=== PATIENT | female | born 1985 ===

== ENCOUNTER 2017-08-24 03:18 | Inpatient (IN) | payer OTHER ==
[2017-08-24 03:57] VITALS: BMI 31.3
[2017-08-24 04:40] LABS: RBC URINE 406 /hpf (0-3); URINE BILIRUBIN NEGATIVE (NEGATIVE); URINE BLOOD 3+ (NEGATIVE); URINE COLOR Amber (YELLOW); URINE GLUCOSE (UA) NORMAL (Normal); URINE KETONE NEGATIVE (NEGATIVE); URINE LEUKOCYTE ESTERASE 2+ Leu/uL (Negative); URINE PROTEIN 2+ mg/dL (NEGATIVE); URINE UROBILINOGEN NORMAL mg/dL (0.2-1.0); WBC URINE 112 /hpf (0-5)
--- NOTE | 2017-08-24 04:55 | OBHP ---
Datetime: 08/24/2017 04:51 IP Adm Impression: Term, intrauterine ; Active labor IP Admit Plan: Admit to unit; Initiate labor protocol Admit Comment, IP Provider: at 38+weks came with c/o ctxs and vb started at 2.30 am, irrg, no l of,+fm.no sex obhx primi pmh de med pnv all nkda psh de soch de ve -/-2 a/p at 38+weeks in eaely labor admit to l_d npo/ivf labs pain joseph cont dawson leah efm anticipate Pelvic Type - PN: Adequate Extremities - PN: Normal Abdomen - PN: Normal Back - PN: Normal Breast - PN: Normal Lungs - PN: Normal Heart - PN: Normal Thyroid - PN: Normal Neurologic - PN: Normal HEENT - PN: Normal General - PN: Normal FHR - Baseline A Provider: 130 Contraction Comments Provider: q1-4 Comments, ACOG Physical Exam: gravid,non tnder min spotting IP Hx Assessment: The History has been Reviewed and is Current EGA AdmitDate IP: 38.2 Vital Signs Provider: Reviewed; Within Normal Limits IP Chief Complaint: Uterine contractions; Vaginal bleeding NICHD Variability Prov Fetus A: Moderate 6-25bpm NICHD Accel Fetus A IP Provider: 15X15 FHR Category Provider Fetus A: Category I Dilatation, Provider: 3 Effacement, Provider: 70 Station, Provider: -2 Genitourinary Exam: Normal DTRs - PN: Normal
--- NOTE | 2017-08-24 04:58 | OBADHP ---
Datetime: 08/24/2017 04:51 Admit Comment, IP Provider: at 38+weks came with c/o ctxs and vb started at 2.30 am, irrg, no l of,+fm.no sex obhx primi pmh de med pnv all nkda psh de soch de ve 2-/-2 a/p at 38+weeks in eaely labor admit to l_d npo/ivf labs pain joseph cont dawson leah efm anticipate Pelvic Type - PN: Adequate Extremities - PN: Normal Abdomen - PN: Normal Back - PN: Normal Breast - PN: Normal Lungs - PN: Normal Heart - PN: Normal Thyroid - PN: Normal Neurologic - PN: Normal HEENT - PN: Normal General - PN: Normal FHR - Baseline A Provider: 130 Contraction Comments Provider: q1-4 Comments, ACOG Physical Exam: gravid,non tnder min spotting IP Hx Assessment: The History has been Reviewed and is Current Vital Signs Provider: Reviewed; Within Normal Limits IP Chief Complaint: Uterine contractions; Vaginal bleeding NICHD Variability Prov Fetus A: Moderate 6-25bpm NICHD Accel Fetus A IP Provider: 15X15 FHR Category Provider Fetus A: Category I Dilatation, Provider: 3 Effacement, Provider: 70 Station, Provider: -2 Genitourinary Exam: Normal DTRs - PN: Normal EGA AdmitDate IP: 38.2 IP Adm Impression: Term, intrauterine ; Active labor IP Admit Plan: Admit to unit; Initiate labor protocol
[2017-08-24] MEDS ORDERED: Lactated Ringer's 1,000 ML IV SCH (05:00)
[2017-08-24 05:56] LABS: BASO % 0.4 % (0.0-2.0); EOS % 0.3 % (0.0-4.0); HEMATOCRIT 30.2 % (34.0-47.0); LYMPH # 2.2 K/uL (1.0-4.3); LYMPH % 19.6 % (20.0-40.0); MEAN CELL VOLUME 76.9 fL (81.0-99.0); MEAN CORPUSCULAR HGB CONC 32.6 g/dL (33.0-37.0); MEAN PLATELET VOLUME 9.8 fL (7.2-11.7); MONO # 0.7 K/uL (0.0-0.8); MONO % 5.9 % (0.0-10.0); RED CELL DISTRIBUTION WIDTH 15.7 % (11.5-14.5); WHITE BLOOD COUNT 11.3 K/uL (4.8-10.8)
[2017-08-24 06:04] LABS: INR 0.9
[2017-08-24 06:26] LABS: CHLORIDE 104 mmol/L (98-107)
[2017-08-24 06:27] LABS: POTASSIUM 3.7 mmol/L (3.6-5.2); SODIUM 132 mmol/L (132-148)
[2017-08-24 06:29] LABS: ALB/GLOB RATIO 0.9 (1.0-2.1); ALKALINE PHOSPHATASE 305 U/L (38-126); ALT/SGPT 23 U/L (9-52); AST/SGOT 17 U/L (14-36); BILIRUBIN,TOTAL 0.4 mg/dL (0.2-1.3); BLOOD UREA NITROGEN 7 mg/dL (7-17); CARBON DIOXIDE 18 mmol/L (22-30); GFR AFRICAN-AMERICAN > 60
[2017-08-24 06:30] LABS: CALCIUM 8.3 mg/dl (8.6-10.4); GLUCOSE,RANDOM 71 mg/dL (65-105)
--- NOTE | 2017-08-24 07:50 | OBPN ---
Datetime: 08/24/2017 07:48 IP Progress Impression: Normal progression of labor IP Progress Plan: Continue present management Contraction Comments Provider: q 2-3 min FHR - Baseline A Provider: 135 Gestation - Est Wks by US: 38.2 IP Progress Note Comment: pt seen and examined c/o of vaginal bleeding bright red adn ctx every 2-3 min, increasing intesnty adn severiyt. pt dneis lof, +FM VSS EM: cat I TOCO: q2-3 min VE: 470/-2 VTX ntact plan @ 38.2 wks GA in active labor -cont curren tmangment Vital Signs Provider: Reviewed; Within Normal Limits NICHD Variability Prov Fetus A: Moderate 6-25bpm Dilatation, Provider: 4 Effacement, Provider: 70 Station, Provider: -2 NICHD Decel Fetus A IP Provider: None Datetime: 08/24/2017 04:51 NICHD Accel Fetus A IP Provider: 15X15 FHR Category Provider Fetus A: Category I
[2017-08-24] MEDS ORDERED: Oxytocin 30 UNIT 30 UNITS/500 ML BAG IV SCH (08:00)
[2017-08-24] MEDS ORDERED: Oxytocin 30 UNIT 30 UNITS/500 ML BAG IV ONE (08:08)
--- NOTE | 2017-08-24 12:58 | OBPN ---
Datetime: 08/24/2017 12:55 IP Progress Impression: Normal progression of labor IP Informed Consent Obtain: Vaginal Delivery IP Progress Plan: Continue present management Membranes, Provider: Ruptured Amniotic Fluid Color, Provider: Clear Contraction Comments Provider: q 2-3 min FHR - Baseline A Provider: 135 Gestation - Est Wks by US: 38.2 Presentation-Admit: Vertex IP Progress Note Comment: pt seen and examined adn report pain from ctx. pt delciend medication. pt with spontanoues lof, and less VB, +FM VSS EFM: 135/mod axel TOCO: q 3 min A/P @ 38.2 wks GA SROM in active labor -cont current managament -pitocn for augmentaitn as per protocle- dw/ ateitn -pain managmnet prn Vital Signs Provider: Within Normal Limits NICHD Variability Prov Fetus A: Moderate 6-25bpm Dilatation, Provider: 6 Effacement, Provider: 80 Station, Provider: -2
[2017-08-24] MEDS ORDERED: Bupivacaine 0.125%/FentaNYL 200 ML EPI ONE (15:56)
--- NOTE | 2017-08-24 19:26 | OBPN ---
Datetime: 08/24/2017 19:22 IP Progress Impression: Normal progression of labor IP Progress Plan: Continue present management Membranes, Provider: Ruptured Contraction Comments Provider: q 2- 3min Gestation - Est Wks by US: 38.2 Presentation-Admit: Vertex IP Progress Note Comment: pt seen and examined for progression of labor and pain s/p epdiural srom vss efm; cat i toco; q2-3 min VE: unchanged PLAN @ 38.2 wks GA in active labor -for ipuc -pitocn as per sharda lópez untis -cont curren gmantent Vital Signs Provider: Reviewed; Within Normal Limits Dilatation, Provider: 6 Effacement, Provider: 80 Station, Provider: -2
[2017-08-24] MEDS ORDERED: Sodium Citrate/Citric Acid 15 ml Sol PO ONE (22:04)
[2017-08-24] MEDS ORDERED: cefOXitin IV 2 gm in Dextrose 2 GM/50 ML BAG IVPB ONE ×2 (22:04→22:13)
[2017-08-24] MEDS ORDERED: Oxycodone/Acetaminophen 5/325 mg Tab PO PRN (22:12)
[2017-08-24] MEDS ORDERED: Sodium Citrate/Citric Acid 15 ml Sol ONE (22:12)
--- NOTE | 2017-08-24 22:20 | OBPN ---
Datetime: 08/24/2017 22:05 IP Progress Impression: Arrest of dilatation/descent IP Informed Consent Obtain: Section Delivery IP Progress Plan: Deliver- Section Membranes, Provider: Ruptured Contraction Comments Provider: q 2-3 min FHR - Baseline A Provider: 150 Gestation - Est Wks by US: 38.2 Presentation-Admit: Vertex IP Progress Note Comment: pt seen and examienf or pregressin of labor VSS V:E unchanged IUPC [place] units 180 A/P @ 38.2 wks GA arrest of dilatoin r/b/a/i of continued augmentatin vs PTLCS not lmited ot bleeding, infection. possible blood transf uion d/w pateitn informed consent obtained -preop antibios -bictira -abodminal prep -pires to gravity -or/anesthsia aware Vital Signs Provider: Reviewed; Within Normal Limits FHR Category Provider Fetus A: Category I NICHD Variability Prov Fetus A: Moderate 6-25bpm Dilatation, Provider: 6 Effacement, Provider: 80 Station, Provider: -2 NICHD Decel Fetus A IP Provider: None
[2017-08-24] MEDS ORDERED: Oxytocin 20 units in LR 2,000 ML IV ONE (22:38)
[2017-08-24] MEDS ORDERED: Morphine 1 mg/ml preservative-free Inj(Duramorph) ONE (22:48)
--- NOTE | 2017-08-24 23:45 | OBDS ---
DELIVERY PERSONNEL Delivery Doctor: Sunny Calderon MD Scrub Nurse: Ajith Grier Research Kennel Supervisor: Suzanne Mejía RN Anesthesiologist: Dr. Chin MATERNAL INFORMATION Maternal Complications: None Provider Comments: PLTCS apgars 9,9 weight of 6lb 1 ounces ebl 800 ml no compilations female ifnant LABOR SUMMARY EDC: 09/05/2017 00:00 No. Babies in Womb: 1 Attempted: No Labor Anesthesia: Epidural LABOR INFORMATION Reason for Induction: Not Applicable Onset of Labor: 08/24/2017 02:00 Oxytocin: Augmentation Group B Beta Strep: Negative (Annotations: 08/08/2017) Steroids Given: None Reason Steroids Not Administered: Not Applicable MEMBRANES Membranes Rupture Method: Spontaneous Rupture of Membranes: 08/24/2017 12:40 Length of Rupture (hrs): 10.57 Amniotic Fluid Color: Light Meconium Amniotic Fluid Amount: Moderate Amniotic Fluid Odor: Normal STAGES OF LABOR Stage 3 hrs: 0 Stage 3 min: 2 Total Time in Labor hrs: 21 Total Time in Labor min: 16 VAGINAL DELIVERY Episiotomy: None Laceration Extension: N/A Laceration Type: None CSECTION DELIVERY Primary Indication: Other Other Primary Indication: Arrest Dilatation CSection Urgency: Elective CSection Incidence: Primary Labor: Labor Elective: Elective BABY A INFORMATION Delivery Date/Time: 08/24/2017 23:14 Method of Delivery: Vaginal Born in Route : No : N/A Forceps: N/A Vacuum Extraction: N/A Shoulder Dystocia : No SHOULDER DYSTOCIA BABY A Delivery Date/Time: 08/24/2017 23:14 PRESENTATION/POSITION BABY A Presentation: Cephalic Cephalic Presentation: Vertex Breech Presentation: N/A PLACENTA INFORMATION BABY A Placenta Delivery Time : 08/24/2017 23:16 Placenta Method of Delivery: Spontaneous Placenta Status: Delivered SCORES BABY A Heart Rate 1 min: >100 bpm Resp Effort 1 min: Good Cry Reflex Irritability 1 min: Cough or Sneeze or Pulls Away Muscle Tone 1 min: Active Motion Color 1 min: Body [place], Extremities Blue SCORE 1 MIN: 9 Heart Rate 5 min: >100 bpm Resp Effort 5 min: Good Cry Reflex Irritability 5 min: Cough or Sneeze or Pulls Away Muscle Tone 5 min: Active Motion Color 5 min: Body [place], Extremities Blue SCORE 5 MIN: 9 INFANT INFORMATION BABY A Gestational Age at Delivery: 38.2 Gestational Status: Term Infant Outcome : Liveborn Condition : Stable Infant Sex: Female IDENTIFICATION/MEDS BABY A ID Band Number: [id number] ID Band Location: Left Leg; Left Arm Sensor Applied: Yes Sensor Number: [id number] Sensor Location : Cord Clamp Vitamin K Given : Aquamephyton 1 mg IM; Left Thigh Erythromycin Given: Given Both Eyes WEIGHT/LENGTH BABY A Infant Birthweight (gms): 3000 Infant Weight (lb): 6 Weight (oz): 10 Length Inches: 19.50 Infant Length cms: 49.5 CORD INFORMATION BABY A No. Cord Vessels: 3 Nuchal Cord : N/A Cord Blood Taken: Yes Infant Suction: Mouth; Nose ASSESSMENT BABY A Infant Complications: Meconium Physical Findings at Delivery: Within Normal Limits Infant Respirations: Appears Normal Eye Surgeon/ALS Called : Yes Care By: Dr Carter Transferred To: Nursery
--- NOTE | 2017-08-24 23:47 | PCM.SURG1 ---
Surgeon's Initial Post Op Note - Surgeon's Notes Surgeon: Graciela Calderon MD Barrel Handler: Lebron Mixon MD Type of Anesthesia: Spinal Pre-Operative Diagnosis: Arrest of dilation, term intrauterine Operative Findings: live famle ifnant, cephalic presentation, 9,9 weigh tof 6lbs 10 ounces ebl 800ml. Pediatriican present for deliveyr. nromal appaering uterus, tubs and ovaries. Dr Lebron Mixon was surigcal assistant librarian and was prsent for entire case adn essential in gaining enrey , retraction, expsoure , holding bladder blade, delivering , closing all alyers and obtainign hemostasis. Post-Operative Diagnosis: same as above Operation Performed: Primary Low Transvesre Cesearen section Specimen/Specimens Removed: palcenta Estimated Blood Loss: EBL {In ML}: 800 Blood Products Given: N/A Drains Used: No Drains Post-Op Condition: Good Date of Surgery/Procedure: 08/24/17 Time of Surgery/Procedure: 23:15
[2017-08-25 07:24] LABS: BASO % 0.2 % (0.0-2.0); HEMATOCRIT 26.6 % (34.0-47.0); LYMPH # 1.5 K/uL (1.0-4.3); LYMPH % 7.3 % (20.0-40.0); MEAN CELL VOLUME 76.3 fL (81.0-99.0); MEAN CORPUSCULAR HEMOGLOBIN 24.8 pg (27.0-31.0); MEAN CORPUSCULAR HGB CONC 32.5 g/dL (33.0-37.0); MONO # 0.9 K/uL (0.0-0.8); MONO % 4.1 % (0.0-10.0); PLATELET COUNT 244 K/uL (130-400); RED CELL DISTRIBUTION WIDTH 15.7 % (11.5-14.5); WHITE BLOOD COUNT 20.9 K/uL (4.8-10.8)
[2017-08-25 08:01] LABS: CHLORIDE 106 mmol/L (98-107); SODIUM 132 mmol/L (132-148)
[2017-08-25 08:02] LABS: POTASSIUM 3.6 mmol/L (3.6-5.2)
[2017-08-25 08:04] LABS: GFR AFRICAN-AMERICAN > 60
[2017-08-25 08:05] LABS: BLOOD UREA NITROGEN 6 mg/dL (7-17); CALCIUM 7.7 mg/dl (8.6-10.4); CARBON DIOXIDE 19 mmol/L (22-30); GLUCOSE,RANDOM 85 mg/dL (65-105)
[2017-08-25] MEDS: Simethicone 80 mg Chewtab PO SCH ×3 (09:16→22:32)
[2017-08-25] MEDS: Prenatal Multivit/Folic Acid/Iron Tab PO SCH (09:16)
[2017-08-25 09:43] LABS: NEUTROPHIL 88 % (50-75); TOTAL CELLS COUNTED 100
[2017-08-25 09:45] LABS: LARGE PLATELETS PRESENT
--- NOTE | 2017-08-25 13:27 | OP ---
PROCEDURE DATE: 08/24/2017 PREOPERATIVE DIAGNOSES: Arrest of dilation, term intrauterine . POSTOPERATIVE DIAGNOSES: Arrest of dilation, term intrauterine . SURGEON: Graciela Calderon MD GEAR TOOTH LAPPING MACHINE OPERATOR: Lebron Mixon MD TYPE OF ANESTHESIA: Spinal epidural. OPERATIVE FINDINGS: Live female , cephalic presentation, Agars 9 and 9, weight of 6 pounds 10 ounces. Normal appearing uterus, tubes and ovaries bilaterally. AMUSEMENT CENTRE MANAGER PRESENT FOR DELIVERY: Dr. Lebron Mixon was surgical instruments inspector and present for the entire case and essential in gaining retraction, entry, exposure, holding the bladder blade, helping delivery of the infant, closing all layers and obtaining hemostasis. OPERATION PERFORMED: Primary low-transverse section. SPECIMEN REMOVED: Placenta. ESTIMATED BLOOD LOSS: 800 mL. BLOOD PRODUCTS: None. COMPLICATIONS: None. DESCRIPTION OF PROCEDURE: The patient is a 32-year-old G1, P0 at 38 plus weeks presented initially with vaginal bleeding, was found to be 2 cm in early labor. The patient was then hydrated, reexamined, blood work was done, and was found to be 4 cm, progressing in active labor. The patient was then subsequently admitted for progression of labor and Pitocin was given for augmentation with IUPC, with failed progression after 6 cm for more than 12 hours. Risks, benefits, alternatives, indications of primary section were discussed with the patient. The patient agreed with informed consent. Consent was signed and the patient was transferred to recovery room. The patient was taken to the operating room, where she received spinal anesthesia. Once found to be adequate, she was placed on the operating table in the dorsal lithotomy position. The patient was prepped and draped in usual sterile fashion. Time-out confirmed correct patient and correct procedure. The patient was given preoperative prophylactic antibiotics. A Pfannenstiel skin incision was made with a scalpel and carried in line to the underlying layer of the fascia. The fascia was incised in the midline and incision was extended laterally with the Bovie. The superior aspect of the fascial incision was grasped with Allis and Deondre clamps and underlying rectus muscles were dissected off bluntly. Attention was then turned to the inferior aspect which in a similar fashion was grasped with Allis and Deondre clamps and underlying rectus muscle resected off bluntly. The rectus muscle was then bluntly in the midline. The peritoneum identified in a clear space. Incision was extended laterally and superiorly until there was good visualization of the bladder. The lower end of the Cassy was then inserted and the lower uterine segment was incised in transverse fashion, lower uterine segment was incised laterally bluntly. Following the surgeon's hand entered the uterine cavity and the infant's head was delivered atraumatically and brought through the uterine incision. No nuchal cord noted followed by the delivery of the shoulders, followed by the delivery of the body. Both oral and nasal passages of the baby were bulb suctioned. Terminal meconium was then noted. The umbilical cord was clamped and cut. The baby was sent off to the waiting map mounter. Following this, cord blood and cord gases were collected and sent x2. The placenta was then delivered manually. The uterus was exteriorized and cleared for all clots and debris. The uterine incision was repaired with 0 Vicryl in a running continuous locked fashion. A second layer of the same suture was used to close the uterus in a running imbricating manner. The uterus found to be boggy and at that point Methergine was then administered by the Anesthesia. Uterine tone was then improved and there was good hemostasis noted. There were normal tubes and ovaries. The uterus was then returned to the abdomen and paracolic gutters were cleared off all clots and debris. Following this, there was good hemostasis at the uterine incision site. The peritoneum was reapproximated and closed with 2-0 chromic in a running continuous fashion. The rectus was reapproximated and closed with 2-0 chromic in an interrupted manner and the fascia was reapproximated and closed with 0-Vicryl in a running continuous fashion. Subcutaneous space was closed with 2-0 plain in an interrupted manner and the skin was reapproximated and closed with camelia. At the end of the procedure, all needle, sponge, and instrument counts were noted to be correct. The patient tolerated the procedure well and was transferred to the recovery room in stable condition. Graciela Calderon MD
--- NOTE | 2017-08-25 18:10 | OBPPN ---
Datetime: 08/25/2017 11:27 PP Pain Prov: Within normal limits PP Nausea Prov: Denies PP Flatus Prov: No PP BM Prov: No PP Breasts Prov: Normal PP Heart Prov: Normal PP Lungs Prov: Normal PP Abdomen/Uterus Prov: Normal PP Lochia Prov: Normal PP Vulva/Perineum Prov: Normal PP CVA Tenderness Prov: Normal PP Extremities Prov: Normal PP C/S Incision Prov: Normal PP Progress Prov: Normal PP Impression Prov: Normal progression PP Plan Prov: Continue present management PP Progress Note Prov: Patient was seen and examined at bedside in the AM. Patient states she feels well just tired. She states she has not passed flatus yet. She denies nausea and vomiting. She sta emma she is breast feeding. Objective: H/H (07/26): 8.7/26.6 H/H on admission (07/25): 9.8/30.2 Awake, Alert, Oriented x3 Abdomen: Incision is dry, clean and intact. Tender and fundus is firm. Lower Extremities: non-tender, non-swollen A/P: 32 year old female s/p 07/25 due to arrest of dilation 1.) Discontinue pires 08/25 at 11am - Monitor urination 2.) Continue pain managment 3.) Advance Diet to Liquid and Regular as tolerated 4.) Ferrous Sulfate 325mg BID 5.) Colace as needed for constipation 6.) Encourage ambulation Claudia Salmeron DO PGY-1 Patient examined,agree with resident exam, assessment and plan Vital Signs Provider PP: Reviewed; Within Normal Limits
[2017-08-25] MEDS: Oxycodone/Acetaminophen 5/325 mg Tab PO PRN (18:55)
[2017-08-25] MEDS ORDERED: Bisacodyl 5mg EC Tab PO ONE (22:14)
[2017-08-26] MEDS: Oxycodone/Acetaminophen 5/325 mg Tab PO PRN (04:01)
--- NOTE | 2017-08-26 05:56 | OBPPN ---
Datetime: 08/26/2017 05:53 PP Pain Prov: Within normal limits PP Nausea Prov: Denies PP Flatus Prov: Yes PP BM Prov: No PP Heart Prov: Normal PP Lungs Prov: Normal PP Abdomen/Uterus Prov: Normal PP Lochia Prov: Normal PP CVA Tenderness Prov: Normal PP Extremities Prov: Normal PP C/S Incision Prov: Normal PP Progress Prov: Normal PP Impression Prov: Normal progression PP Plan Prov: Continue present management PP Progress Note Prov: S-patient denies any complaints.tolerating diet.ambulating and vodiing withou t difficulty.breast feeding O-VSS Afebrile Fundus firm and below umbilcisu incision clean, dry and intact extremities no calf tenderness A/P Patient s/p csection pod 2 doing well -continue routine care -anticipate discharge tomorrow Vital Signs Provider PP: Reviewed; Within Normal Limits
[2017-08-26 07:13] LABS: BASO % 0.1 % (0.0-2.0); EOS # 0.1 K/uL (0.0-0.7); EOS % 0.3 % (0.0-4.0); HEMATOCRIT 24.3 % (34.0-47.0); LYMPH # 1.8 K/uL (1.0-4.3); LYMPH % 9.3 % (20.0-40.0); MEAN CELL VOLUME 77.2 fL (81.0-99.0); MEAN CORPUSCULAR HEMOGLOBIN 24.2 pg (27.0-31.0); MEAN CORPUSCULAR HGB CONC 31.3 g/dL (33.0-37.0); MEAN PLATELET VOLUME 9.3 fL (7.2-11.7); MONO # 0.9 K/uL (0.0-0.8); MONO % 4.7 % (0.0-10.0); PLATELET COUNT 237 K/uL (130-400); RED CELL DISTRIBUTION WIDTH 15.9 % (11.5-14.5); WHITE BLOOD COUNT 19.1 K/uL (4.8-10.8)
[2017-08-26 09:20] LABS: NEUTROPHIL 79 % (50-75); TOTAL CELLS COUNTED 100
[2017-08-26] MEDS: Simethicone 80 mg Chewtab PO SCH ×4 (09:49→22:29)
[2017-08-26] MEDS: Prenatal Multivit/Folic Acid/Iron Tab PO SCH (09:50)
[2017-08-26] MEDS ORDERED: Influenza Vaccine 60 mcg/0.5 mL SYR (4YR UP) IM ONE (11:09)
--- NOTE | 2017-08-27 07:37 | OBDCSUM ---
Datetime: 08/27/2017 07:35 Discharged to, Provider: Home Follow up at, Provider: th or monday Disch Instr Activity: Normal activity Disch Instr Diet: Regular Discharge Diagnosis, Provider: Term Delivered Follow up in weeks, Provider: clinic Disch Activity Restrictions: No exercising; No lifting; No driving; Minimize walking; Minimize stair -climbing; No sexual activity; Nothing in vagina - [place], tampons, douche Discharge Comment, Provider: dc home no sex percocet, prn ferrous sulfate bid f/u in clinin on or monday Discharge Diagnosis Prov Other: s/p c/s ch anemia
--- NOTE | 2017-08-27 07:37 | OBPPN ---
Datetime: 08/27/2017 07:34 PP Pain Prov: Within normal limits PP Nausea Prov: Denies PP Flatus Prov: Yes PP Abdomen/Uterus Prov: Normal PP Lochia Prov: Normal PP Extremities Prov: Normal PP C/S Incision Prov: Normal PP Comments Phys Exam Prov: fudus below umblicus ext mild edema,no calf ten incision clean PP Impression Prov: Normal progression PP Plan Prov: Discharge PP Progress Note Prov: pt was seen at bed side, pain under control, no n/v, tolerating deit,voiding, min lochia, flatus + pod#3 s/p c/s, ch anemia dc home no sex percocet, prn ferrous sulfate bid f/u in clinin on or monday Vital Signs Provider PP: Reviewed; Within Normal Limits
[2017-08-27 08:29] VITALS: PULSE 82; RESP 18; TEMP 97.4; O2SAT 96
[2017-08-27] MEDS: Prenatal Multivit/Folic Acid/Iron Tab PO SCH (09:44)
[2017-08-27] MEDS: Simethicone 80 mg Chewtab PO SCH (09:44)
[2017-08-27 15:56] VITALS: BP 107/70
== END 2017-08-27 11:54 | disposition home or self-care (01) | DRG 370 ==
LOC: C.EROB 03:18 → C.4D 04:55 → C.4M 08-25 02:37
PROVIDERS: ADMIT Obstetrics & Gynecology; ATTEND Obstetrics & Gynecology
PROC: 10D00Z1 Extraction of Products of Conception, Low, Open Approach (ICD-10-PCS; principal; 2017-08-24)
DX: O62.0 Primary inadequate contractions (principal); O99.02 Anemia complicating childbirth; O77.0 Labor and delivery complicated by meconium in amniotic fluid; K59.00 Constipation, unspecified; O90.89 Other complications of the puerperium, not elsewhere classified; Z37.0 Single live birth; Z3A.38 38 weeks gestation of pregnancy